=== PATIENT | female | born 1985 | race Caucasian/White ===

== ENCOUNTER 2016-12-31 23:59 | Observation (INO) ==
[2017-01-01] MEDS ORDERED: Ondansetron 4 MG/2 ML VIAL IVP PRN (02:43)
[2017-01-01] MEDS ORDERED: Acetaminophen 325 MG TABLET PO PRN (02:43)
[2017-01-01] MEDS ORDERED: Naloxone 0.4 MG/ML INJ IVP PRN (02:43)
[2017-01-01] MEDS ORDERED: INSULIN GLARGINE SQ SCH (02:45)
[2017-01-01] MEDS ORDERED: traMADol 50 MG TABLET PO PRN (02:45)
[2017-01-01] MEDS ORDERED: D5% in Water 1,000 ML IVC PRN (02:46)
[2017-01-01] MEDS ORDERED: *HR* Dextrose 50 % in Water (Syg) 50 ML SYRINGE IVP PRN (02:46)
[2017-01-01] MEDS ORDERED: Dextrose Gel 15 GM PO PRN ×2 (02:46)
[2017-01-01] MEDS ORDERED: 0.9 % Sodium Chloride 1,000 ML IVC SCH (03:00)
[2017-01-01] MEDS ORDERED: Ipratropium/Albuterol Neb 3 ML IH PRN (03:05)
[2017-01-01] MEDS ORDERED: Metoclopramide 10 MG/2 ML VIAL IVP PRN (03:05)
--- NOTE | 2017-01-01 03:08 | Internal Med History&Physical ---
Date of Encounter: 01/01/17 Time of Encounter: 03:06 Assessment and Plan (1) Gastroenteritis Current visit: No Status: Acute Patient has a history of sick contacts and has nausea, vomiting and diarrhea. Benign exam except for epigastric tenderness which is likely due to gastroenteritis. Placed under observation. Intravenous fluids. Conservative management. Diarrhea has subsided. Antiemetic medications. Full liquid diet. Advance as tolerated. (2) Diabetes mellitus Current visit: Yes Status: Chronic Patient is 33 units of Lantus at bedtime. She did not receive any Lantus yesterday. We will provide single dose of long-acting insulin now and resume her home dose. She takes 15 units pre-meal insulin. As her appetite is reduced due to gastritis, we will provide her with 12 units pre-meal insulin. Sliding scale insulin. Not in DKA Qualifiers: Diabetes mellitus type: type 1 Diabetes mellitus complication status: with hyperglycemia Qualified Code(s): E10.65 - Type 1 diabetes mellitus with hyperglycemia (3) Asthma Current visit: Yes Status: Chronic Patient states that she is not able to use inhaled corticosteroids due to her diabetes. She is currently on Singulair and Zyrtec for her asthma. She uses albuterol inhaler for rescue and 1 canister of albuterol can last up to one and half months. Not an exacerbation currently. Continue home medications. Qualifiers: Asthma severity: mild persistent Asthma complication type: uncomplicated Qualified Code(s): J45.30 - Mild persistent asthma, uncomplicated Internal Medicine - H&P: HPI Chief complaint: Nausea, vomiting and diarrhea Admitted From: Emergency Dept Plans for Post Hospital Care: Home History of present illness: Ms. Mccarty is a 31 year old female with a history of type 1 diabetes mellitus who presented to the emergency department due to nausea, vomiting and diarrhea. Patient states that her mother is sick with vomiting and her father has diarrhea. She started developing nausea, vomiting and diarrhea over the past 2 days. Hence, she presented to the emergency department at [facility]. She has been transferred to [facility] for higher level of care and management of her gastroenteritis. The patient was also found to have elevated ketones at [facility]. Patient states that about 10 days ago, she started having upper respiratory signs with cough, sputum production and shortness of breath. She went to [place] emergency department and was placed on antibiotics. She has finished 8 days of antibiotics. She has 2 more days of antibiotics. Over the last 2 days, she started experiencing nausea, vomiting and diarrhea. These are loose and watery diarrheal episodes without any blood or mucus. Her last diarrheal episode was at 7 PM last night. She congested report nausea although her last vomiting episode was at 11 PM yesterday. She reports 4/10 pain in the right upper abdomen that is throbbing in nature without any radiation. No aggravating or relieving factors. She denies fever or chills. She denies any urinary symptoms. She denies any rash or bruising. Past Med Surg Social Fam HX - Past Medical History Attestation: Yes The following information was validated with the patient. Source: patient Medical history: asthma, diabetes (Type 1) Psychiatric history: anxiety - Past Surgical History Surgical History: - Social History Smoking Status: Current every day smoker Packs per day: 0.5 Smokeless Tobacco Status: No Alcohol use: none Drug use: none Current living situation: Home, With Family Activity Level: Independent ambulation, Very active Recent Out of Country Travel Within the Last 8 Weeks: No Exposure or Possible Exposure to Illness During Travel: No - Family History Brother Hx Family Endocrine Disorder: Yes (Prediabetes) Internal Medicine - H&P: Meds Cetirizine HCl [Zyrtec] 10 mg PO DAILY 01/14/16 [History] Insulin Glargine [Lantus] 33 unit SQ DAILY 02/01/16 [History] Insulin LISPRO [Humalog] 15 unit SQ TIDWM MDD plus sliding scale 02/01/16 [ History] Multivitamin [One Daily Essential] 1 tab PO DAILY 08/28/16 [History] diazePAM [Valium] 5 mg PO BID PRN 08/28/16 [History] Metoprolol [Lopressor] 25 mg PO DAILY 10/01/16 [History] Amitriptyline [Elavil] 50 mg PO HS 12/25/16 [History] Amoxicillin/Clavulanate [Augmentin] 875 mg PO BIDWM #20 tablet 12/25/16 [Rx] Diclofenac Sodium [Voltaren] 50 mg PO DAILY 12/25/16 [History] Tramadol HCl [Ultram] 50 mg PO BID PRN 12/25/16 [History] Allergies ciprofloxacin [From Ciloxan] Allergy (Verified 12/31/16 17:05) Rash Latex, Natural Rubber Allergy (Verified 12/31/16 17:05) Hives Quinolones Allergy (Verified 12/31/16 17:05) Rash shellfish derived Allergy (Verified 12/31/16 17:05) Difficulty Breathing Sulfa (Sulfonamide Antibiotics) Allergy (Verified 12/31/16 17:05) Swelling of the Eye sulfamethoxazole [From Bactrim] Allergy (Verified 12/31/16 17:05) Rash trimethoprim [From Bactrim] Allergy (Verified 12/31/16 17:05) Rash adhesive tape Adverse Reaction (Uncoded 12/31/16 17:05) Rash All Systems PM: A 10-system review of systems was performed and is negative for pertinent findings except as documented above in the HPI. Review of systems: 10 systems have been reviewed and are negative except as mentioned in the history of present illness - Constitutional Vitals: Temp Pulse Resp BP Pulse Ox 99.8 F H 87 18 104/61 97 01/01/17 02:20 01/01/17 02:20 01/01/17 02:20 01/01/17 02:20 01/01/17 02:20 Exam: Gen.: Lying in bed. No acute distress. Eyes: Pupils equal, round and reactive to light. Extraocular muscles intact. ENT: Moist mucous membranes. No oropharyngeal erythema or discharge. Chest: Clear to auscultation bilaterally. No adventitious sounds present. CVS: First and second heart sounds present. No murmurs, rubs or gallops. Abdomen: Soft, tenderness to palpation in the epigastric region without any rebound tenderness, guarding or rigidity; nondistended. Bowel sounds present. No hepatosplenomegaly. Skin: No decubitus ulcers appreciated. WEIGHER AND CRUSHER: No focal neuro deficits present. Psychiatric: Alert, awake and oriented to time, place and person. Lymphatic system: No lymphadenopathy appreciated Internal Med - H&P Results - Labs Labs: Labs from [place] reviewed-leukocytosis of 16,000. Elevated serum ketones. Anion gap of 14. Venous blood gas pH is normal. - Diagnostic Studies Other Images Additional comments: CT scan abdomen/pelvis-gas in the gastric fundus
[2017-01-01 04:40] LABS: Hemoglobin A1C 7.9 %
[2017-01-01 04:42] LABS: Alanine Aminotransferase 7 Units/L (0-55); Albumin/Globulin Ratio 1.1 (1.1-2.2); Alkaline Phosphatase 47 Units/L (38-126); Aspartate Amino Transferase 12 Units/L (5-34); BUN/Creatinine Ratio 25 (6-26); Bilirubin,Total 0.6 mg/dL (0.2-1.2); Blood Urea Nitrogen 19 mg/dL (7-20); Calcium 7.8 mg/dL (8.6-10.8); Carbon Dioxide 17 mEq/L (19-29); Chloride 108 mEq/L (98-109); Globulin 2.8 g/dL (2.4-3.5); Glucose 211 mg/dL (70-99); Osmolality,Calculated 283 (280-300); Potassium 3.9 mEq/L (3.5-4.5); Sodium 132 mEq/L (136-145); Total Protein 5.8 g/dL (6.0-8.3); eGFR For African Americans > 60 (> 60); eGFR For Non-African Americans > 60 (> 60)
[2017-01-01 06:20] LABS: Basophils % 0.4 %; Eosinophils # 0.1 K/mcL (0.0-0.6); Hematocrit 39.1 % (35.3-44.9); Hemoglobin 13.1 g/dL (11.5-15.4); Immature Granulocytes % 0.7 % (0-4); Immature Platelets 1.8 % (1.1-6.1); Lymphocytes # 1.5 K/mcL (0.6-4.6); Lymphocytes % 13.1 %; Mean Corpuscular HGB Conc 33.5 g/dL (31.6-35.5); Mean Corpuscular Hemoglobin 28.7 pg (28.0-33.3); Mean Corpuscular Volume 85.6 fL (83.0-100.0); Mean Platelet Volume 10.5 fL (9.4-12.4); Monocytes # 0.7 K/mcL (0.0-1.3); Monocytes % 6.2 %; Neutrophils # 8.8 K/mcL (1.6-8.9); Platelet Count 287 K/mcL (140-400); Red Blood Count 4.57 M/mcL (3.82-4.97); Red Cell Distribution Width 12.1 % (11.5-14.5); Segmented Neutrophils % 78.6 %
[2017-01-01] MEDS: *HR* Heparin 5,000 UNIT/ML VIAL SQ SCH ×2 (08:27→15:44)
[2017-01-01] MEDS: Insulin LISPRO 300 UNITS/3 ML VIAL SQ SCH ×6 (08:28→17:15)
[2017-01-01] MEDS ORDERED: Loratadine 10 MG TABLET PO SCH (09:00)
[2017-01-01] MEDS ORDERED: Insulin DETEMIR 100 UNIT/ML X5UNITS SQ SCH (09:00)
[2017-01-01 15:14] VITALS: BP 94/60
--- NOTE | 2017-01-01 16:08 | Event Note ---
Date of Encounter: 01/01/17 Time of Encounter: 10:00 Patient seen and examined. On examination, patient sleep on her side in the bed. Patient stating she was able to drink milk and juice this morning but states she does not like warm beverages or oatmeal. She denies any nausea vomiting or pain at this time and states that she would like to rest. Abdominal and pelvic CT negative for acute processes and possibly reveals gastric emphysema but without signs of obstruction or ischemia. Low clinical concern for gastric emphysema. Patient is tolerating clear liquids well, we will advance her diet as she tolerates. Hypertension noted, currently asymptomatic. Patient is now taking by mouth, will discontinue IV fluids and monitor. We will observe her overnight and possibly discharge tomorrow pending clinical outcomes. She has had a couple of mild hypoglycemic episodes, will trend. Abdominal pelvic CT without contrast impression on 12/31/16 from [facility]: Small amount of gas is seen within the non-dependent portion of the gastric fundus. While this may represent gas within the lumen, given the patient's history, gastric emphysema is not excluded. There is an 8 mm noncalcified indeterminate nodule in the left lung base which is incompletely imaged on this study. This may be related to the patient's granulomatous disease which is identified in the right lung base. The patient is below age to fall in the Fleichsner guidelines for follow-up.
--- NOTE | 2017-01-01 17:20 | Discharge Summary ---
Date of Encounter: 01/01/17 Time of Encounter: 10:00 (and 1700) - Discharge Diagnosis (1) Gastroenteritis Priority: Primary Status: Acute Comments: Patient was able to tolerate a regular diet while admitted. (2) Diabetes type 1, controlled Priority: Secondary Status: Chronic Comments: Relatively well controlled at home with an A1c is 7.9%, recommended continued follow-up outpatient. Qualifiers: Diabetes mellitus complication status: without complication Qualified Code( s): E10.9 - Type 1 diabetes mellitus without complications (3) Dehydration Priority: Primary Status: Resolved (4) Asthma Priority: Secondary Status: Chronic Comments: No acute exacerbation. Patient denies shortness of breath above her normal Qualifiers: Asthma severity: mild persistent Asthma complication type: uncomplicated Qualified Code(s): J45.30 - Mild persistent asthma, uncomplicated - Discharge Medications Prescriptions: Ondansetron HCl 4 mg PO Q6H PRN #12 tablet PRN Reason: Nausea And Vomiting Home Medications: Cetirizine HCl [Zyrtec] 10 mg PO DAILY 01/14/16 [History] Insulin Glargine [Lantus] 33 unit SQ DAILY 02/01/16 [History] Insulin LISPRO [Humalog] 15 unit SQ TIDWM MDD plus sliding scale 02/01/16 [ History] Multivitamin [One Daily Essential] 1 tab PO DAILY 08/28/16 [History] diazePAM [Valium] 5 mg PO BID PRN 08/28/16 [History] Amitriptyline [Elavil] 50 mg PO HS 12/25/16 [History] Amoxicillin/Clavulanate [Augmentin] 875 mg PO BIDWM #20 tablet 12/25/16 [Rx] Diclofenac Sodium [Voltaren] 50 mg PO DAILY 12/25/16 [History] Tramadol HCl [Ultram] 50 mg PO BID PRN 12/25/16 [History] Albuterol Sulfate [Proair Hfa] 2 puff IH Q4H PRN 01/01/17 [History] Metoprolol XL (24 HR) Succ [Toprol Xl] 25 mg PO DAILY 01/01/17 [History] Ondansetron HCl 4 mg PO Q6H PRN #12 tablet 01/01/17 [Rx] Allergies/Adverse Reactions: Allergies ciprofloxacin [From Ciloxan] Allergy (Verified 12/31/16 17:05) Rash Latex, Natural Rubber Allergy (Verified 12/31/16 17:05) Hives Quinolones Allergy (Verified 12/31/16 17:05) Rash shellfish derived Allergy (Verified 12/31/16 17:05) Difficulty Breathing Sulfa (Sulfonamide Antibiotics) Allergy (Verified 12/31/16 17:05) Swelling of the Eye sulfamethoxazole [From Bactrim] Allergy (Verified 12/31/16 17:05) Rash trimethoprim [From Bactrim] Allergy (Verified 12/31/16 17:05) Rash adhesive tape Adverse Reaction (Uncoded 12/31/16 17:05) Rash Date of admission: 01/01/17 01:27 Primary care physician: Jermaine Meza MD Discharging clinician: Sarita Babcock Anticipated date of discharge: 01/01/17 - Patient Status Disposition: Home, Self-Care Condition: Good Functional capacity at discharge: independent ambulation Overall status at discharge: patient is progressing back to baseline - Discharge Instructions Follow Up With: Jermaine Meza MD [Primary Care Provider] - 01/08/17 3:00 pm Additional Instructions: Follow-up with primary care provider as scheduled - Diet and Activity Activity: increase activity as tolerated Diet: diabetic diet Hospital course: Ms. Mccarty is a 31 year old female with past medical history of asthma, type 1 diabetes. Patient presented to the emergency department chief complaint nausea , vomiting, and diarrhea. Patient stating she has sick contacts in the house. Symptoms present 2 days. Patient presented to [facility] emergency department were an abdominal pelvic CT was negative for acute processes. The abdominal CT did reveal possibility of a gastric emphysema however no signs of obstruction or ischemia and clinical picture not consistent with gastric emphysema. Patient was transferred to [facility] and admitted to the hospitalist service for further evaluation and management. Initially upon admission, patient was able to tolerate a liquid diet. Diet was quickly advanced and she was able to tolerate a regular diet shortly after admission. Glucoses were better controlled at time of discharge. Patient was borderline hypotensive however she was asymptomatic and her heart rate was regular. She is discharged home in stable condition with close outpatient follow-up recommended. Abdominal pelvic CT without contrast impression on 12/31/16 from [facility]: Small amount of gas is seen within the non-dependent portion of the gastric fundus. While this may represent gas within the lumen, given the patient's history, gastric emphysema is not excluded. There is an 8 mm noncalcified indeterminate nodule in the left lung base which is incompletely imaged on this study. This may be related to the patient's granulomatous disease which is identified in the right lung base. The patient is below age to fall in the Fleichsner guidelines for follow-up. - Time Spent with Patient Total time spent providing and/or coordinating discharge services: - Constitutional Vitals: Temp Pulse Resp BP Pulse Ox 98.4 F 70 15 94/60 100 01/01/17 15:13 01/01/17 15:13 01/01/17 15:13 01/01/17 15:13 01/01/17 15:13 General appearance: Present: A&O X 3, pleasant, no acute distress, answers questions appropriately - Head Head exam: Present: atraumatic, normocephalic - Eye Eye exam: Present: PERRL, conjuntiva pink, sclera anicteric Pupils: Present: PERRL - Neck Neck exam general surgery: Present: supple, trachea midline. Absent: lymphadenopathy - Respiratory Respiratory exam: Present: CTAB. Absent: accessory muscle use, rales, respiratory distress, rhonchi, wheezes - Cardiovascular Cardiovascular exam: Present: RRR, +S1, +S2. Absent: diastolic murmur, gallop, rubs, systolic murmur - GI/Abdominal GI/Abdominal exam: Present: hyperactive bowel sounds, soft, no peritoneal signs. Absent: distended, tenderness - Extremities Exam Extremities exam: Present: warm, radial pulses palpable and symetrical. Absent : calf tenderness, cyanotic, pedal edema - Neurological Exam Neurological exam: Present: alert, CN II-XII intact, normal gait, oriented X3, no focal deficits, strengths equal and symetr throughout. Absent: pronater drift, facial droop, speech deficit - Skin Skin exam: Present: dry, intact, pallor, warm
[2017-01-01] MEDS ORDERED: Insulin LISPRO 300 UNITS/3 ML VIAL SQ SCH (21:00)
== END 2017-01-01 19:11 | disposition home or self-care (01) ==
LOC: 3BNU → SUATTDRO 01-01 01:27
PROVIDERS: ADMIT Internal Medicine Sleep Medicine; ATTEND Nurse Practitioner Family